=== PATIENT | male | born 1960 | race African-American/Black ===

== ENCOUNTER → 2016-08-27 | Outpatient (CLI) | payer MEDICARE, OTHER ==
[~2016-08-27] MED LIST: BACT800T5 PO; CEPH500C3 PO; COUM3TAB PO; LORT7.5T3 PO; MELO7.5T PO; TAB-TAB PO; TRAM50 PO; TYLE500T PO; [UNRECOGNIZED DRUG - CODE] PO
[2016-08-27 13:16] LABS: AUTOMATED NEUTROPHIL # 3.2 TH/MM3 (1.8-7.7); BASOPHIL # 0.1 TH/MM3 (0-0.2); BASOPHIL % 0.8 % (0.0-2.0); EOSINOPHIL % 0.5 % (0.0-4.0); HEMATOCRIT 36.8 % (39.0-51.0); HEMO FLAGS DIFF FINAL; LYMPH % 39.9 % (9.0-44.0); LYMPHOCYTE # 2.5 TH/MM3 (1.0-4.8); MEAN CELL VOLUME 99.9 FL (80.0-100.0); MEAN CORPUSCULAR HEMOGLOBIN 34.4 PG (27.0-34.0); MEAN CORPUSCULAR HGB CONC 34.4 % (32.0-36.0); MONO % 8.2 % (0.0-8.0); NEUT % 50.6 % (16.0-70.0); PLATELET COUNT 232 TH/MM3 (150-450); RED BLOOD COUNT 3.68 MIL/MM3 (4.50-5.90); RED CELL DISTRIBUTION WIDTH 13.2 % (11.6-17.2); WHITE BLOOD COUNT 6.3 TH/MM3 (4.0-11.0)
[2016-08-27 13:25] LABS: BLOOD, URINE NEG (NEG); GLUCOSE,URINE NEG (NEG); KETONE, URINE NEG (NEG); MUCUS URINE FEW /lpf (OCC); NITRITE,URINE NEG (NEG); PH, URINE 5.5 (5.0-8.5); URINE COLOR YELLOW (YELLW/STRAW)
[2016-08-27 13:38] LABS: ALT (GPT) 29 U/L (12-78); AST (GOT) 30 U/L (15-37); BLOOD UREA NITROGEN 20 MG/DL (7-18); GLOMERULAR FILTRATION RATE 50 ML/MIN (>89)
[2016-08-27 13:39] LABS: RHEUMATOID FACTOR TRIGGER LESS THAN 10.0 IU/ML (0.0-14.9)
[2016-08-27 13:48] LABS: WESTERGREN SEDIMENTATION RATE 48 mm/hr (0-20)
[2016-08-30 14:28] LABS: ANA SCREEN NEG (NEG)
[2016-08-30 15:48] LABS: RAPID PLASMA REAGIN SCREEN REACTIVE (NON-REACTVE)
== END ==
LOC: CLAB 12:45
PROVIDERS: ATTEND Ophthalmology
DX: H44.119 Panuveitis, unspecified eye (principal); M32.9 Systemic lupus erythematosus, unspecified; M45.6 Ankylosing spondylitis lumbar region
CPT/HCPCS: 36415; 81001; 82164; 82310; 82565; 84450; 84460; 84520; 85025; 85652; 86038; 86140; 86430; 86592; 86593; 86812

== ENCOUNTER → 2016-09-30 | Outpatient (CLI) | payer MEDICARE, OTHER ==
[2016-09-30 12:32] LABS: HEMATOCRIT 35.6 % (39.0-51.0); MEAN CELL VOLUME 98.9 FL (80.0-100.0); MEAN CORPUSCULAR HEMOGLOBIN 34.1 PG (27.0-34.0); MEAN CORPUSCULAR HGB CONC 34.5 % (32.0-36.0); PLATELET COUNT 242 TH/MM3 (150-450); RED CELL DISTRIBUTION WIDTH 13.2 % (11.6-17.2); REVIEW FLAG FINAL; WHITE BLOOD COUNT 6.7 TH/MM3 (4.0-11.0)
[2016-09-30 12:43] LABS: BLOOD, URINE NEG (NEG); GLUCOSE,URINE NEG (NEG); KETONE, URINE NEG (NEG); NITRITE,URINE NEG (NEG); SQUAMOUS EPITHELIAL CELL URINE <1 /hpf (0-5); URINE COLOR YELLOW (YELLW/STRAW)
[2016-09-30 13:14] LABS: ALKALINE PHOSPHATASE 72 U/L (45-117); ALT (GPT) 31 U/L (12-78); ANION GAP 8 MEQ/L (5-15); AST (GOT) 28 U/L (15-37); BLOOD UREA NITROGEN 17 MG/DL (7-18); CHLORIDE 104 MEQ/L (98-107); CREATINE KINASE 685 U/L (39-308); GLOMERULAR FILTRATION RATE 67 ML/MIN (>89); GLUCOSE,FASTING 103 MG/DL (74-99); HDL CHOLESTEROL 33.1 MG/DL (40.0-60.0); LDL CHOLESTEROL 34 MG/DL (0-99); POTASSIUM 3.4 MEQ/L (3.5-5.1); SODIUM (NA) 139 MEQ/L (136-145); TOTAL BILIRUBIN ADULT 0.4 MG/DL (0.2-1.0)
[2016-09-30 13:33] LABS: HEMOGLOBIN A1b 0.7 %; HEMOGLOBIN Ao 87.9 %; HEMOGLOBIN F 0.7 %; HEMOGLOBIN LA1C 1.8 %; HEMOGLOBIN P3 3.1 %
[2016-10-02 03:49] LABS: CD4/CD8 RATIO 0.6 (0.86-5.00)
[2016-10-02 11:51] LABS: HIV RNA COPIES LESS THAN 20.0 (()); HIV RNA LOG COPIES LESS THAN 1.30 (())
== END ==
LOC: CLAB 11:22
PROVIDERS: ATTEND Specialist
DX: B20 Human immunodeficiency virus [HIV] disease (principal); E29.1 Testicular hypofunction; E78.5 Hyperlipidemia, unspecified; R73.09 Other abnormal glucose; Z79.899 Other long term (current) drug therapy; Z12.5 Encounter for screening for malignant neoplasm of prostate
CPT/HCPCS: 36415; 80053; 80061; 81001; 82248; 82272; 82306; 82550; 82552; 83036; 83525; 84402; 84403; 84443; 84681; 85027; 86355; 86357; 86359; 86360; 87536; G0103

== ENCOUNTER → 2017-01-11 | Outpatient (CLI) | payer MEDICARE, OTHER ==
[2017-01-11 13:38] LABS: BLOOD, URINE NEG (NEG); GLUCOSE,URINE NEG (NEG); KETONE, URINE NEG (NEG); MUCUS URINE FEW /lpf (OCC); NITRITE,URINE NEG (NEG); PH, URINE 5.5 (5.0-8.5); SQUAMOUS EPITHELIAL CELL URINE <1 /hpf (0-5); URINE COLOR YELLOW (YELLW/STRAW)
[2017-01-11 13:40] LABS: HEMATOCRIT 33.8 % (39.0-51.0); MEAN CELL VOLUME 97.9 FL (80.0-100.0); MEAN CORPUSCULAR HEMOGLOBIN 34.4 PG (27.0-34.0); MEAN CORPUSCULAR HGB CONC 35.2 % (32.0-36.0); PLATELET COUNT 240 TH/MM3 (150-450); RED BLOOD COUNT 3.45 MIL/MM3 (4.50-5.90); RED CELL DISTRIBUTION WIDTH 13.5 % (11.6-17.2); REVIEW FLAG FINAL; WHITE BLOOD COUNT 6.2 TH/MM3 (4.0-11.0)
[2017-01-11 13:50] LABS: HEMOGLOBIN A1b 0.7 %; HEMOGLOBIN Ao 88.2 %; HEMOGLOBIN F 0.7 %; HEMOGLOBIN LA1C 1.7 %; HEMOGLOBIN P3 3.1 %
[2017-01-11 14:08] LABS: ALT (GPT) 35 U/L (12-78); ANION GAP 6 MEQ/L (5-15); AST (GOT) 31 U/L (15-37); BICARBONATE 26.4 MEQ/L (21.0-32.0); BLOOD UREA NITROGEN 17 MG/DL (7-18); CHLORIDE 105 MEQ/L (98-107); GLOMERULAR FILTRATION RATE 86 ML/MIN (>89); GLUCOSE,FASTING 91 MG/DL (74-99); POTASSIUM 3.4 MEQ/L (3.5-5.1); SODIUM (NA) 137 MEQ/L (136-145)
[2017-01-11 14:10] LABS: ALKALINE PHOSPHATASE 68 U/L (45-117); CREATINE KINASE 726 U/L (39-308); INDIRECT BILIRUBIN 0.4 MG/DL (0.0-0.8); TOTAL BILIRUBIN ADULT 0.5 MG/DL (0.2-1.0)
[2017-01-11 14:28] LABS: CKMB 7.9 NG/ML (0.5-3.6)
[2017-01-12 23:51] LABS: CD4/CD8 RATIO 0.8 (0.86-5.00)
[2017-01-13 11:52] LABS: HIV RNA COPIES LESS THAN 20.0 (()); HIV RNA LOG COPIES LESS THAN 1.30 (())
== END ==
LOC: CLAB 12:59
PROVIDERS: ATTEND Specialist
DX: B20 Human immunodeficiency virus [HIV] disease (principal); E55.9 Vitamin D deficiency, unspecified; A53.9 Syphilis, unspecified; R73.09 Other abnormal glucose; R79.9 Abnormal finding of blood chemistry, unspecified; Z79.899 Other long term (current) drug therapy; Z85.040 Personal history of malignant carcinoid tumor of rectum
CPT/HCPCS: 36415; 80048; 80076; 81001; 82306; 82550; 82552; 82947; 82985; 83036; 83525; 84681; 85027; 86355; 86357; 86359; 86360; 86592; 86593; 86780; 87086; 87536

== ENCOUNTER → 2017-03-31 | Outpatient (CLI) | payer MEDICARE, OTHER ==
[2017-03-31 14:43] LABS: HEMATOCRIT 35.2 % (39.0-51.0); MEAN CELL VOLUME 99.7 FL (80.0-100.0); MEAN CORPUSCULAR HEMOGLOBIN 33.6 PG (27.0-34.0); MEAN CORPUSCULAR HGB CONC 33.7 % (32.0-36.0); PLATELET COUNT 226 TH/MM3 (150-450); RED BLOOD COUNT 3.53 MIL/MM3 (4.50-5.90); RED CELL DISTRIBUTION WIDTH 12.9 % (11.6-17.2); REVIEW FLAG FINAL; WHITE BLOOD COUNT 6.1 TH/MM3 (4.0-11.0)
[2017-03-31 15:04] LABS: POTASSIUM 3.7 MEQ/L (3.5-5.1)
[2017-03-31 15:05] LABS: BLOOD, URINE NEG (NEG); GLUCOSE,URINE NEG (NEG); KETONE, URINE NEG (NEG); MUCUS URINE FEW /lpf (OCC); NITRITE,URINE NEG (NEG); PH, URINE 5.5 (5.0-8.5); SQUAMOUS EPITHELIAL CELL URINE <1 /hpf (0-5); URINE COLOR YELLOW (YELLW/STRAW)
[2017-03-31 15:08] LABS: HDL CHOLESTEROL 39.6 MG/DL (40.0-60.0); INDIRECT BILIRUBIN 0.3 MG/DL (0.0-0.8); TOTAL BILIRUBIN ADULT 0.4 MG/DL (0.2-1.0)
[2017-03-31 18:57] LABS: CKMB 10.9 NG/ML (0.5-3.6)
[2017-04-02 23:53] LABS: CD4/CD8 RATIO 0.6 (0.86-5.00)
[2017-04-03 17:53] LABS: HIV RNA COPIES LESS THAN 20.0 (<20); HIV RNA LOG COPIES LESS THAN 1.30 (<1.30)
== END ==
LOC: CLAB 14:12
PROVIDERS: ATTEND Specialist
DX: E29.1 Testicular hypofunction (principal); B20 Human immunodeficiency virus [HIV] disease; R73.09 Other abnormal glucose; E78.4 Other hyperlipidemia; Z79.899 Other long term (current) drug therapy; Z12.5 Encounter for screening for malignant neoplasm of prostate
CPT/HCPCS: 36415; 80048; 80061; 80076; 81001; 82550; 82552; 83525; 84403; 84410; 85027; 86355; 86357; 86359; 86360; 87536; G0103; 84402

== ENCOUNTER → 2017-07-11 | Outpatient (CLI) | payer MEDICARE, OTHER ==
[2017-07-11 11:11] LABS: HEMATOCRIT 34.4 % (39.0-51.0); MEAN CELL VOLUME 99.5 FL (80.0-100.0); MEAN CORPUSCULAR HEMOGLOBIN 35.1 PG (27.0-34.0); MEAN CORPUSCULAR HGB CONC 35.3 % (32.0-36.0); PLATELET COUNT 244 TH/MM3 (150-450); RED BLOOD COUNT 3.45 MIL/MM3 (4.50-5.90); RED CELL DISTRIBUTION WIDTH 13.2 % (11.6-17.2); REVIEW FLAG FINAL
[2017-07-11 11:27] LABS: BICARBONATE 25.2 MEQ/L (21.0-32.0); POTASSIUM 3.7 MEQ/L (3.5-5.1)
[2017-07-11 11:37] LABS: INDIRECT BILIRUBIN 0.1 MG/DL (0.0-0.8); TOTAL BILIRUBIN ADULT 0.2 MG/DL (0.2-1.0)
[2017-07-11 11:48] LABS: BLOOD, URINE NEG (NEG); GLUCOSE,URINE NEG (NEG); KETONE, URINE NEG (NEG); MUCUS URINE FEW /lpf (OCC); NITRITE,URINE NEG (NEG); URINE COLOR YELLOW (YELLW/STRAW)
[2017-07-11 14:23] LABS: CHLAMYDIA PCR NOT DETECTED (NOT DETECT); NEISSERIA PCR NOT DETECTED (NOT DETECT)
[2017-07-15 03:51] LABS: HIV RNA COPIES LESS THAN 20.0 (<20); HIV RNA LOG COPIES LESS THAN 1.30 (<1.30)
[2017-07-15 15:52] LABS: CD4/CD8 RATIO 0.8 (0.86-5.00)
== END ==
LOC: CLAB 10:29
PROVIDERS: ATTEND Specialist
DX: B20 Human immunodeficiency virus [HIV] disease (principal); A53.9 Syphilis, unspecified; R79.9 Abnormal finding of blood chemistry, unspecified; E78.5 Hyperlipidemia, unspecified; R82.90 Unspecified abnormal findings in urine; Z20.2 Contact with and (suspected) exposure to infections with a predominantly sexual mode of transmission
CPT/HCPCS: 36415; 80048; 80061; 80076; 81001; 84443; 85027; 86355; 86357; 86359; 86360; 86592; 86593; 86780; 87086; 87491; 87536; 87591

== ENCOUNTER → 2017-10-06 | Outpatient (CLI) | payer MEDICARE, OTHER ==
[2017-10-06 10:12] LABS: HEMATOCRIT 33.9 % (39.0-51.0); HEMOGLOBIN 12.2 GM/DL (13.0-17.0); MEAN CELL VOLUME 98.7 FL (80.0-100.0); MEAN CORPUSCULAR HEMOGLOBIN 35.4 PG (27.0-34.0); MEAN CORPUSCULAR HGB CONC 35.9 % (32.0-36.0); MEAN PLATELET VOLUME 7.4 FL (7.0-11.0); PLATELET COUNT 241 TH/MM3 (150-450); RED BLOOD COUNT 3.44 MIL/MM3 (4.50-5.90); RED CELL DISTRIBUTION WIDTH 13.2 % (11.6-17.2); WHITE BLOOD COUNT 6.2 TH/MM3 (4.0-11.0)
[2017-10-06 10:19] LABS: ALBUMIN 3.9 GM/DL (3.4-5.0); ALT (GPT) 29 U/L (12-78); AST (GOT) 26 U/L (15-37); BICARBONATE 26.3 MEQ/L (21.0-32.0); BLOOD UREA NITROGEN 20 MG/DL (7-18); CALCIUM 8.5 MG/DL (8.5-10.1); CHLORIDE 106 MEQ/L (98-107); CHOLESTEROL 150 MG/DL (120-200); CREATININE 1.21 MG/DL (0.60-1.30); DIRECT BILIRUBIN ADULT 0.1 MG/DL (0.0-0.2); GLOMERULAR FILTRATION RATE 74 ML/MIN (>89); GLUCOSE,FASTING 92 MG/DL (74-99); SODIUM (NA) 140 MEQ/L (136-145); TRIGLYCERIDES 178 MG/DL (42-150)
[2017-10-06 10:29] LABS: ALKALINE PHOSPHATASE 69 U/L (45-117); CHOLESTEROL/ HDL RATIO 3.91 RATIO; HDL CHOLESTEROL 38.3 MG/DL (40.0-60.0); INDIRECT BILIRUBIN 0.2 MG/DL (0.0-0.8); LDL CHOLESTEROL 76 MG/DL (0-99); TOTAL BILIRUBIN ADULT 0.3 MG/DL (0.2-1.0); TOTAL PROTEIN 8.6 GM/DL (6.4-8.2)
[2017-10-06 10:57] LABS: BILIRUBIN, URINE NEG (NEG); BLOOD, URINE NEG (NEG); GLUCOSE,URINE NEG (NEG); KETONE, URINE NEG (NEG); MUCUS URINE FEW /lpf (OCC); NITRITE,URINE NEG (NEG); PH, URINE 5.5 (5.0-8.5); URINE COLOR YELLOW (YELLW/STRAW); URINE LEUKOCYTE ESTERASE SMALL (NEG)
[2017-10-06 16:58] LABS: HEMOGLOBIN A1C 4.5 % (4.3-6.0)
[2017-10-07 13:50] LABS: RPR SCREEN FOR REFLEX REACTIVE (NON-REACTVE)
[2017-10-08 15:13] LABS: FREE TESTOSTERONE 6.77 ng/dL (3.87-14.7)
[2017-10-08 23:52] LABS: C-PEPTIDE 3.86 ng/mL (0.80-3.85)
== END ==
LOC: CLAB 09:16
PROVIDERS: ATTEND Specialist
DX: E29.1 Testicular hypofunction (principal); R79.89 Other specified abnormal findings of blood chemistry; B20 Human immunodeficiency virus [HIV] disease; R73.01 Impaired fasting glucose; Z20.828 Contact with and (suspected) exposure to other viral communicable diseases; N39.0 Urinary tract infection, site not specified; B95.2 Enterococcus as the cause of diseases classified elsewhere
CPT/HCPCS: 36415; 80048; 80061; 80076; 81001; 82985; 83036; 83525; 84153; 84403; 84410; 84443; 84681; 85027; 86355; 86357; 86359; 86360; 86592; 86593; 86780; 87077; 87086; 87186; 87491; 87536; 87591

== ENCOUNTER 2017-12-06 00:39 | Emergency (ER) | payer MEDICARE, OTHER ==
[~2017-12-06] VITALS: Ht 188 cm; Wt 100.0 kg
[2017-12-06 00:47] VITALS: BP 114/60; PULSE 87; RESP 18; TEMP 99.7; O2SAT 96
--- NOTE | 2017-12-06 01:24 | PD ---
HPI Chief Complaint: GI Complaint Time Seen by Provider: 01:19 Travel History International Travel<30 days: No Contact w/Intl Traveler<30days: No Traveled to known affect area: No History of Present Illness HPI The patient is a 57 year old male who presents to the [facility] emergency department with a history of diarrhea that began on Tuesday. He has had too many episodes to count. He reports feeling lightheaded and fatigued. He denies having any nausea or vomiting. His stool is brown in color. He denies any blood or mucus in his stool. He was dx with HIV in 1987 and is on retroviral medication. He last CD4 and viral load was checked in Sep. He reports that his viral load was undetectable. He did have some abdominal pain and cramping however that improved since yesterday. He reports that the cramping was generalized throughout the abdomen. The patient denies having any sick contacts. He denies any recent antibiotic use. He denies any unusual food intake although he reports that he did have meatloaf from a fast food restaurant prior to the onset of symptoms. The patient on review of systems denies having any known recent fevers, cough or congestion, neck pain, chest pain, shortness of breath, urinary symptoms, or neurologic symptoms. [facility] Past Medical History Narrative Medical The patient's past medical history is significant for HIV with an undetectable viral load currently on retroviral medications, history of colorectal cancer-in 1998 status post treatment with chemotherapy and radiation, arthritis Arthritis: Yes Autoimmune Disease: Yes (HIV +) Blood Disorders: No Cancer: Yes (RECTO-COLON) Cardiovascular Problems: No Chemotherapy: Yes (1998) Endocrine: No Gastrointestinal Disorders: Yes (RECTAL/COLON CA WITH CHEMO & RADIATION 1998. HIV +) Genitourinary: No Hypertension: Yes Immune Disorder: Yes (HIV) Implanted Vascular Access Dvce: No Musculoskeletal: No Neurologic: No Psychiatric: No Reproductive: No Respiratory: No Radiation Therapy: Yes (1998) Past Surgical History Narrative Surgical The patient's past surgical history is unremarkable. Other Surgery: No Social History Alcohol Use: No Tobacco Use: No Substance Use: No Allergies-Medications (Allergen,Severity, Reaction): Coded Allergies: No Known Allergies (Verified Allergy, Unknown, 12/06/17) Reported Meds & Prescriptions Reported Meds & Active Scripts Active Flagyl (Metronidazole) 500 Mg Tab 500 Mg PO TID Cipro (Ciprofloxacin HCl) 500 Mg Tab 500 Mg PO BID K-Tab (Potassium Chloride) 20 Meq Tab 20 Meq PO BID Bactrim DS (Sulfamethoxazole-Trimethoprim DS) 1 Tab Tab 1 Tab PO BID 10 Days Keflex (Cephalexin Monohydrate) 500 Mg Cap 500 Mg PO Q6HR 10 Days Reported Lortab 7.5/500 (Acetaminophen/Hydrocodone Bitart) Tab 1-2 Tab PO Q6HPRN FOR PAIN [Trizivir] 1 Tab PO BID 300/150/300 MG 1 TAB BID Acetaminophen 500 Mg Tab 500 Mg PO PRN Multivitamin (Multivitamins) 1 Tab Tab 1 Tab PO DAILY Ultram (Tramadol HCl) 50 Mg Tab 50 Mg PO TIDPRN FOR PAIN Mobic (Meloxicam) 7.5 Mg Tab 7.5 Mg PO DAILY Review of Systems Except as stated in HPI: all other systems reviewed are Neg General / Constitutional: No: Fever Eyes: No: Visual changes HENT: No: Headaches Cardiovascular: No: Chest Pain or Discomfort Respiratory: No: Shortness of Breath Gastrointestinal: Positive: Diarrhea, Abdominal Pain, Changes in Bowel Habits, No: Nausea, Vomiting, Hematemesis, Hematochezia, Indigestion, Loss of Appetite Genitourinary: No: Dysuria Musculoskeletal: No: Pain Skin: No Rash Neurologic: No: Weakness Psychiatric: No: Depression Endocrine: No: Polydipsia Hematologic/Lymphatic: No: Easy Bruising Physical Exam Narrative General: The patient is a well-developed well-nourished male in no acute distress. Head and Neck exam: Head is normocephalic atraumatic. Eyes: EOMI, pupils are equal round and reactive to light. Nose: Midline septum with pink mucous membranes Mouth: Dentition unremarkable. Moist mucus membranes. Posterior oropharynx is not erythematous. No tonsillar hypertrophy. Uvula midline. Airway patent. Neck: No palpable lymphadenopathy. No nuchal rigidity. No thyromegaly. Cardiovascular: Regular rate and rhythm without murmurs, gallops, or rubs. No pulse deficit to the extremities on simultaneous auscultation and palpation of his radial artery. Lungs: Clear to auscultation bilaterally. No wheezes, rhonchi, or rales. Abdomen: Soft, without tenderness to palpation in all 4 quadrants of the abdomen. No guarding, rebound, or rigidity. Normal bowel sounds are audible. No tenderness on palpation of McBurney's point. Negative Tineo sign. Extremities: No clubbing, cyanosis, or edema. 2+ pulses in all 4 extremities. No calf tenderness on palpation. Back: No costovertebral angle tenderness to palpation. Neurologic Exam: Grossly nonfocal. Skin Exam: No rash noted. Intact skin that is warm and dry. Data Data Last Documented VS Vital Signs Date Time Temp Pulse Resp B/P (MAP) Pulse Ox O2 Delivery O2 Flow Rate FiO2 12/06/17 00:47 99.7 87 18 114/60 (78) 96 Orders Orders Electrocardiogram (12/06/17 01:21) Complete Blood Count With Diff (12/06/17:21) Comprehensive Metabolic Panel (12/06/17:21) Troponin I (12/06/17:21) Prothrombin Time / Inr (Pt) (12/06/17:21) Act Partial Throm Time (Ptt) (12/06/17:21) Blood Culture (12/06/17:21) Lipase (12/06/17:21) Urinalysis - C+S If Indicated (12/06/17 01:21) Magnesium (Mg) (12/06/17 01:21) Enteric Path (Stool) (12/06/17:21) C Diff Toxin Pcr (12/06/17 01:21) Iv Access Insert/Monitor (12/06/17 01:21) Ecg Monitoring (12/06/17 01:21) Oximetry (12/06/17 01:21) Stool Wbc (Leukocytes) (12/06/17 01:21) Lactic Acid Sepsis Protocol (12/06/17 01:21) Sodium Chlor 0.9% 1000 Ml Inj (Ns 1000 M (12/06/17 01:30) Potassium Chloride (Kcl) (12/06/17 02:30) Ct Abd/Pel W Iv Contrast(Rout) (12/06/17 03:12) Sodium Chlor 0.9% 1000 Ml Inj (Ns 1000 M (12/06/17 03:15) Ciprofloxacin (Cipro) (12/06/17 04:30) Metronidazole (Flagyl) (12/06/17 04:30) Iohexol 350 Inj (Omnipaque 350 Inj) (12/06/17 04:33) Labs Laboratory Tests Test 12/06/17 01:40 12/06/17 01:42 12/06/17 03:09 White Blood Count 9.1 TH/MM3 Red Blood Count 3.37 MIL/MM3 Hemoglobin 12.0 GM/DL Hematocrit 32.7 % Mean Corpuscular Volume 97.0 FL Mean Corpuscular Hemoglobin 35.7 PG Mean Corpuscular Hemoglobin Concent 36.8 % Red Cell Distribution Width 13.2 % Platelet Count 248 TH/MM3 Mean Platelet Volume 7.2 FL Neutrophils (%) (Auto) 61.8 % Lymphocytes (%) (Auto) 21.3 % Monocytes (%) (Auto) 16.3 % Eosinophils (%) (Auto) 0.2 % Basophils (%) (Auto) 0.4 % Neutrophils # (Auto) 5.6 TH/MM3 Lymphocytes # (Auto) 1.9 TH/MM3 Monocytes # (Auto) 1.5 TH/MM3 Eosinophils # (Auto) 0.0 TH/MM3 Basophils # (Auto) 0.0 TH/MM3 CBC Comment AUTO DIFF Differential Total Cells Counted 100 Neutrophils % (Manual) 49 % Band Neutrophils % 26 % Lymphocytes % 16 % Monocytes % 9 % Neutrophils # (Manual) 6.8 TH/MM3 Differential Comment FINAL DIFF MANUAL Toxic Granulation 1+ Dohle Bodies PRESENT Platelet Estimate NORMAL Platelet Morphology Comment NORMAL Prothrombin Time 10.0 SEC Prothromb Time International Ratio 1.0 RATIO Activated Partial Thromboplast Time 24.2 SEC Blood Urea Nitrogen 24 MG/DL Creatinine 1.76 MG/DL Random Glucose 105 MG/DL Total Protein 7.5 GM/DL Albumin 2.9 GM/DL Calcium Level 8.3 MG/DL Magnesium Level 2.0 MG/DL Alkaline Phosphatase 54 U/L Aspartate Amino Transf (AST/SGOT) 18 U/L Alanine Aminotransferase (ALT/SGPT) 22 U/L Total Bilirubin 0.7 MG/DL Sodium Level 138 MEQ/L Potassium Level 2.9 MEQ/L Chloride Level 103 MEQ/L Carbon Dioxide Level 28.8 MEQ/L Anion Gap 6 MEQ/L Estimat Glomerular Filtration Rate 48 ML/MIN Troponin I LESS THAN 0.02 NG/ML Lipase 48 U/L Lactic Acid Level 0.9 mmol/L Urine Color YELLOW Urine Turbidity HAZY Urine pH 5.5 Urine Specific [place] 1.017 Urine Protein 30 mg/dL Urine Glucose (UA) NEG mg/dL Urine Ketones NEG mg/dL Urine Occult Blood TRACE Urine Nitrite NEG Urine Bilirubin NEG Urine Urobilinogen LESS THAN 2.0 MG/DL Urine Leukocyte Esterase NEG Urine RBC 1 /hpf Urine WBC 4 /hpf Urine Squamous Epithelial Cells 1 /hpf Urine Hyaline Casts 43 /lpf Urine Granular Casts 5 /lpf Urine Mucus FEW /lpf Microscopic Urinalysis Comment CULT NOT INDICATED Stool C. difficile Toxin (PCR) NEGATIVE Stl C. difficile Toxin Epiderm 027 PRESUMPTIVE NEGATIVE MDM Medical Decision Making Medical Screen Exam Complete: Yes Emergency Medical Condition: Yes Medical Record Reviewed: Yes Differential Diagnosis Viral versus bacterial gastroenteritis, versus diverticulitis, versus colitis, versus electrolyte derangements, versus dehydration Narrative Course During the course of the patient's emergency department visit, the patient's history, examination, and differential diagnosis were reviewed with the patient. The patient was placed on a surveillance system monitor with oximetry and frequent blood pressure monitoring. The patient had IV access obtained and blood work sent for analysis. The patient had a EKG done on arrival. The patient's EKG shows a heart rate of 78, QRS duration 110 ms, QTC [address] segment elevation is noted. An incomplete right bundle branch block is noted. The patient was initially provided normal saline 1 L IV fluid bolus. The patient's laboratory studies were reviewed and remarkable for 12/06/17 01:40 Total Protein 7.5, Albumin 2.9 L, Calcium Level 8.3 L, Magnesium Level 2.0, Alkaline Phosphatase 54, Aspartate Amino Transf (AST/SGOT) 18, Alanine Aminotransferase (ALT/SGPT) 22, Total Bilirubin 0.7. The patient's hypokalemia was supplemented orally. The patient's BUN and creatinine were elevated compared to previous values consistent with mild dehydration. The patient was given a second liter of normal saline IV fluids. The patient had a lactic acid of 0.9. Troponin I is less than 0.02. INR 1. Urinalysis shows 30 protein trace occult blood, otherwise unremarkable. Lipase is within normal limits Radiology studies were reviewed and remarkable for a CT scan of the abdomen pelvis shows benign hepatic and renal cysts, questionable wall thickening involving the descending colon can be seen in patients with colitis, no evidence of bowel obstruction, free fluid, or free air. The patient was given a dose of ciprofloxacin and Flagyl orally and tolerated this well. The patient will be discharged home to continue on antibiotic. He was instructed to follow-up with his primary care physician by phone in the morning to schedule a follow-up appointment in the next 2 days for reexamination. The patient is resting comfortably and feels better, is alert and in no distress. The patient's results and examination findings were discussed with the patient. The repeat examination is unremarkable and benign. The history, exam, diagnostic testing, and current condition do not suggest any significant pathology to warrant further testing, continued ED treatment, admission, or surgical evaluation at this point. The vital signs have been stable. The patient does not have uncontrollable pain, intractable vomiting, or other significant symptoms. The patient's condition is stable and appropriate for discharge. The patient will pursue further outpatient evaluation with a primary care physician or other designated or consulting physician as indicated in the discharge instructions. The patient expressed understanding and was agreeable with this plan. Diagnosis Primary Impression: Acute colitis Additional Impression: Diarrhea Qualified Codes: A09 - Infectious gastroenteritis and colitis, unspecified Referrals: Primary Care Physician 2 days Patient Instructions: Colitis (ED), General Instructions Med/Other Pt SpecificInfo: Prescription(s) given Scripts Metronidazole (Flagyl) 500 Mg Tab 500 MG PO TID for Infection, #20 TAB 0 Refills Prov: Miroslava Jane MD 12/06/17 Ciprofloxacin (Cipro) 500 Mg Tab 500 MG PO BID for Infection, #19 TAB 0 Refills Prov: Miroslava Jane MD 12/06/17 Potassium Chloride ER (K-Tab) 20 Meq Tab 20 MEQ PO BID for Electrolyte Replacement, #6 TAB 0 Refills Prov: Miroslava Jane MD 12/06/17 Disposition: 01 DISCHARGE HOME Condition: Stable Miroslava Jane MD December 06, 2017 01:24
[2017-12-06] MEDS ORDERED: SODIUM CHLOR 0.9% 1000 ML INJ 1,000 ML IV ONE ×2 (01:30→03:15)
[2017-12-06 01:58] LABS: AUTOMATED NEUTROPHIL # 5.6 TH/MM3 (1.8-7.7); BASOPHIL % 0.4 % (0.0-2.0); EOSINOPHIL % 0.2 % (0.0-4.0); HEMATOCRIT 32.7 % (39.0-51.0); LYMPH % 21.3 % (9.0-44.0); LYMPHOCYTE # 1.9 TH/MM3 (1.0-4.8); MEAN CORPUSCULAR HEMOGLOBIN 35.7 PG (27.0-34.0); MEAN PLATELET VOLUME 7.2 FL (7.0-11.0); MONO % 16.3 % (0.0-8.0); MONOCYTE # 1.5 TH/MM3 (0-0.9); NEUT % 61.8 % (16.0-70.0); PLATELET COUNT 248 TH/MM3 (150-450); RED BLOOD COUNT 3.37 MIL/MM3 (4.50-5.90); RED CELL DISTRIBUTION WIDTH 13.2 % (11.6-17.2); WHITE BLOOD COUNT 9.1 TH/MM3 (4.0-11.0)
[2017-12-06 02:00] LABS: MEAN CORPUSCULAR HGB CONC 36.8 % (32.0-36.0)
[2017-12-06 02:18] LABS: ALBUMIN 2.9 GM/DL (3.4-5.0); ALKALINE PHOSPHATASE 54 U/L (45-117); ALT (GPT) 22 U/L (12-78); AST (GOT) 18 U/L (15-37); BICARBONATE 28.8 MEQ/L (21.0-32.0); BLOOD UREA NITROGEN 24 MG/DL (7-18); CALCIUM 8.3 MG/DL (8.5-10.1); CHLORIDE 103 MEQ/L (98-107); CREATININE 1.76 MG/DL (0.60-1.30); GLOMERULAR FILTRATION RATE 48 ML/MIN (>89); GLUCOSE,RANDOM 105 MG/DL (74-106); SODIUM (NA) 138 MEQ/L (136-145); TOTAL BILIRUBIN ADULT 0.7 MG/DL (0.2-1.0); TOTAL PROTEIN 7.5 GM/DL (6.4-8.2); TROPONIN I LESS THAN 0.02 NG/ML (0.02-0.05)
[2017-12-06] MEDS ORDERED: POTASSIUM CHLORIDE 20 MEQ CONTROLLED RELEASE TAB PO ONE (02:30)
[2017-12-06 02:34] LABS: BANDS 26 % (0-6); LYMPHOCYTES 16 % (9-44); MONOCYTES 9 % (0-8); NEUTROPHIL # MANUAL DIFF 6.8 TH/MM3 (1.8-7.7); POLYS (SEG NEUTROPHILS) 49 % (16-70)
[2017-12-06 02:35] LABS: DOHLE BODIES PRESENT (NONE SEEN); TOXIC GRANULATION 1+ (NORMAL)
[2017-12-06 03:23] LABS: BILIRUBIN, URINE NEG (NEG); BLOOD, URINE TRACE (NEG); GLUCOSE,URINE NEG (NEG); HYALINE CAST, URINE 43 /lpf (RARE); KETONE, URINE NEG (NEG); MUCUS URINE FEW /lpf (OCC); NITRITE,URINE NEG (NEG); PH, URINE 5.5 (5.0-8.5); SQUAMOUS EPITHELIAL CELL URINE 1 /hpf (0-5); URINE COLOR YELLOW (YELLW/STRAW); URINE LEUKOCYTE ESTERASE NEG (NEG)
[2017-12-06] MEDS ORDERED: POTA1TAB4 PO (04:03)
--- NOTE | 2017-12-06 04:06 | RADRPT ---
EXAM DATE/TIME: 12/06/2017 03:38 [place] COMPARISON: No previous studies available for comparison. INDICATIONS : Diarrhea. IV CONTRAST: 100 cc Omnipaque 350 (iohexol) IV ORAL CONTRAST: No oral contrast ingested. RADIATION DOSE: 7.5 CTDIvol (mGy) MEDICAL HISTORY : HIV. Hypertension. Carcinoma, colon. SURGICAL HISTORY : hip. ENCOUNTER: Initial ACUITY: 3 days PAIN SCALE: 1/10 LOCATION: Bilateral abdomen TECHNIQUE: Volumetric scanning of the abdomen and pelvis was performed. Using automated exposure control and ad justment of the mA and/or kV according to patient size, radiation dose was kept as low as reasonably achievable to obtain optimal diagnostic quality images. DICOM format image data is available electro nically for review and comparison. FINDINGS: LOWER LUNGS: The visualized lower lungs are clear. LIVER: Homogeneous density without lesion except for numerous low density small lesions I suspect cysts. Th ere is no dilation of the biliary tree. No calcified gallstones. SPLEEN: Normal size without lesion. PANCREAS: Within normal limits. KIDNEYS: Normal in size and shape. There is no mass, stone or hydronephrosis except 2 cysts on the right. ADRENAL GLANDS: Within normal limits. VASCULAR: There is no aortic aneurysm. BOWEL/MESENTERY: There Is some questionable wall thickening of the descending colon. ABDOMINAL WALL: Within normal limits. RETROPERITONEUM: There is no lymphadenopathy. BLADDER: No wall thickening or mass. REPRODUCTIVE: Within normal limits. INGUINAL: There is no lymphadenopathy or hernia. MUSCULOSKELETAL: Within normal limits for patient age. Right hip arthroplasty. CONCLUSION: Benign hepatic and renal cysts. Questionable wall thickening involving the descending colon can be se en in patients with colitis. No evidence of bowel obstruction free fluid or free air.. John Mcneill MD on December 06, 2017 at 4:00 Board Certified Radiologist. This report was verified electronically.
[2017-12-06] MEDS ORDERED: metroNIDAZOLE 500 MG TAB PO ONE (04:30)
[2017-12-06] MEDS ORDERED: CIPROFLOXACIN 500 MG TAB PO ONE (04:30)
[2017-12-06] MEDS ORDERED: IOHEXOL 350 MG/ML 10 ML VIAL (for RAD DIAG) IVCONTRAST ONE (04:33)
[2017-12-06] MEDS ORDERED: METR-1 PO (04:33)
[2017-12-06] MEDS ORDERED: CIPR-9 PO (04:33)
--- NOTE | 2017-12-06 10:58 | EKG ---
Date Performed: 12/06/2017 Time Performed: 01:38:30 PTAGE: 57 years EKG: Sinus rhythm INCOMPLETE RIGHT BUNDLE BRANCH BLOCK BORDERLINE ECG PREVIOUS TRACING : 09/04/2012 13.59 DOCTOR: John Lamb Interpretating Date/Time 12/06/2017 10:56:57
== END 2017-12-06 04:44 | disposition home or self-care (01) ==
LOC: NEPE 00:39
DX: A09 Infectious gastroenteritis and colitis, unspecified (principal); I45.10 Unspecified right bundle-branch block; Z21 Asymptomatic human immunodeficiency virus [HIV] infection status; Z85.038 Personal history of other malignant neoplasm of large intestine
CPT/HCPCS: 74177; 80053; 81001; 83605; 83690; 83735; 84484; 85007; 85027; 85610; 85730; 87040; 87205; 87493; 87506; 93005; 96360; 96361; 99284; J7030; Q9967

== ENCOUNTER → 2017-12-22 | Outpatient (CLI) | payer MEDICARE, OTHER ==
[~2017-12-22] MED LIST changes: +CIPR-9 PO; -COUM3TAB PO; +METR-1 PO; +POTA1TAB4 PO
[2017-12-22 11:39] LABS: BILIRUBIN, URINE NEG (NEG); BLOOD, URINE NEG (NEG); GLUCOSE,URINE NEG (NEG); KETONE, URINE 10 mg/dL (NEG); MUCUS URINE FEW /lpf (OCC); NITRITE,URINE NEG (NEG); PH, URINE 6.5 (5.0-8.5); URINE COLOR YELLOW (YELLW/STRAW); URINE LEUKOCYTE ESTERASE NEG (NEG)
== END ==
LOC: CLAB 12-21 12:27
PROVIDERS: ATTEND Specialist
DX: R82.8 Abnormal findings on cytological and histological examination of urine (principal); Z79.899 Other long term (current) drug therapy; E87.6 Hypokalemia; R79.89 Other specified abnormal findings of blood chemistry; R19.7 Diarrhea, unspecified
CPT/HCPCS: 81001; 82272; 87086